=== PATIENT | female | born 1975 | race Caucasian/White ===

== ENCOUNTER 2017-08-29 09:57 | Emergency (ER) | payer OTHER ==
[~2017-08-29] VITALS: Ht 154.9 cm; Wt 97.5 kg
[~2017-08-29 09:57] MED LIST: 'carisoprodol350 MG PO; AMOXICILLIN500 MG PO; ANAPROX DS550 MG PO; ASPIRIN81 M1 PO; AUGMENTIN 875 M1 TAB PO; BACTRIM DS 8001 TA1 PO; BACTROBAN OINT22 GM PO; BUSPAR PO; CEPHALEXIN500 M1 PO; CIPROFLOXACIN500 MG PO; CLARITIN10 MG PO; CLEOCIN HCL150 MG PO; FENOFIBRATE134 MG PO; FUROSEMIDE; GLUCOPHAGE500 M1 PO; GLUCOTROL; GLUCOTROL5 MG PO; HYDROCODONE BIT1 T11 PO; HYDROXYZINE PAM50 MG PO; IBU800 MG PO; K-DUR20 MEQ PO; KEFLEX500 MG PO; LISINOPRIL; LISINOPRIL20 MG PO; MAGNESIUM250 M1 PO; METFORMIN; MOTRIN800 MG PO; OSCAL,OYSTER S500 MG PO; PAXIL20 M1 PO; PEN-VEE K500 MG PO; PEPCID20 MG PO; PERCOCET 325 MG1 TA6 PO; PLAVIX75 M1 PO; PROAIR HFA0.09 MG/AC INH; PYRIDIUM200 MG PO; QVAR0.08 MG/AC INH; SEROQUEL XR400 MG PO; SEROQUEL50 MG PO; SIMVASTATIN; SOMA350 MG PO; TOPROL PO; TOPROL XL100 MG PO; TRAMADOL HCL50 MG PO; TRIMOX500 MG PO; VICODIN 5/500 505 MG PO; ZOCOR20 MG PO
[2017-08-29] MEDS ORDERED: VITAMIN D50000 UNIT PO (10:20)
[2017-08-29] MEDS ORDERED: ACCUNEB 0.1.25 MG/1 INH (10:20)
[2017-08-29] MEDS ORDERED: FLOVENT HFA12 G1 INH (10:21)
[2017-08-29] MEDS ORDERED: SEPTDS PO (15:46)
[2017-08-29] MEDS ORDERED: NORCO 10-325 T1 EACH PO (15:46)
== END 2017-08-29 16:00 | disposition home or self-care (01) ==
LOC: ED 09:57
DX: N61.1 Abscess of the breast and nipple (principal); Z90.49 Acquired absence of other specified parts of digestive tract; Z98.51 Tubal ligation status; Z98.890 Other specified postprocedural states; Z79.899 Other long term (current) drug therapy; Z79.82 Long term (current) use of aspirin; Z88.6 Allergy status to analgesic agent; Z88.8 Allergy status to other drugs, medicaments and biological substances

== ENCOUNTER 2017-09-04 14:19 | Emergency (ER) | payer OTHER ==
[~2017-09-04] VITALS: Ht 154.9 cm; Wt 102.1 kg
--- NOTE | ~2017-09-04 | EKG ---
[place], [place] ELECTROCARDIOGRAM REPORT NAME: JESSICA DEL REAL UNIT #: [id number] ROOM: DOCTOR: EPIPHANY DRAFT REPORT BIRTHDATE: [birth year] [facility] [place] Test Date: 2017-09-04 Test Time: 15:22:36 Pat Name: JESSICA DEL REAL Department: Room: Gender: F Investigation Division Captain: : 1975 Requested By: YANNICK PADILLA Order Number: [id number] Reading MD: Josh Hall MD Measurements Intervals [place] Rate: 95 P: 68 NV: 157 QRS: 57 QRSD: 116 T: 57 QT: 397 QTc: 499 Interpretive Statements Sinus rhythm Nonspecific intraventricular conduction delay Abnormal inferior Q waves Electronically Signed On 09-06-2017 11:06:01 PDT by Josh Hall MD CM:EKGRPT:ELECTROCARDIOGRAM REPORT [id number] YANNICK PADILLA EPIPHANY DRAFT REPORT YANNICK PADILLA
[~2017-09-04 14:19] MED LIST changes: +ACCUNEB 0.1.25 MG/1 INH; +FLOVENT HFA12 G1 INH; +NORCO 10-325 T1 EACH PO; +SEPTDS PO; +VITAMIN D50000 UNIT PO
[2017-09-04 14:57] LABS: MEAN CELL VOLUME 92.9 fl (81.0-99.0); MEAN CORPUSCULAR HGB 29.6 pg (27.0-31.0); MEAN CORPUSCULAR HGB CONC 31.8 g/dl (33.0-37.0); MEAN PLATELET VOLUME 10.1 fl (9.6-12.3); NUCLEATED RED BLOOD CELL 0.6 10*3/uL (0.0-0.0); NUCLEATED RED BLOOD CELL 1.3 % (0.0-0.0); PLATELET COUNT AUTOMATED 579 10*3/uL (130-400); RED BLOOD COUNT 1.69 10*6/uL (4.10-5.10)
[2017-09-04 15:03] LABS: WHITE BLOOD COUNT 48.4 10*3/uL (4.8-10.8)
[2017-09-04 15:04] LABS: HEMATOCRIT 15.7 % (37.0-47.0)
[2017-09-04 15:13] LABS: BILIRUBIN NEGATIVE (NEGATIVE); BLOOD TRACE-INTACT (NEGATIVE); CLARITY CLEAR (CLEAR); COLOR YELLOW (YELLOW); GLUCOSE 3+ (NEGATIVE); KETONE 1+ (NEGATIVE); LEUKO ESTERASE NEGATIVE (NEGATIVE); NITRITE NEGATIVE (NEGATIVE); SPECIFIC GRAVITY <= 1.005 (1.005-1.030); UROBILINOGEN 0.2 E.U./dl (0.2-1.0)
[2017-09-04 15:14] LABS: ALKALINE PHOSPHATASE 52 U/L (45-117); BUN 51 mg/dl (7-24); CHLORIDE 101 mmol/L (98-107); CREATININE 1.38 mg/dL (0.55-1.02); POTASSIUM 4.6 mmol/L (3.5-5.1); SGOT/AST 7 IU/L (3-35); SGPT/ALT 18 U/L (12-78); SODIUM 130 mmol/L (136-145); TOTAL PROTEIN 6.3 gm/dL (6.4-8.2)
[2017-09-04 15:15] LABS: TROPONIN I < 0.015 ng/ml (<0.045)
[2017-09-04 15:19] LABS: PLATELET SUFFICIENCY HIGH (NORMAL); TOTAL CELLS COUNTED 100 #CELLS
[2017-09-04 15:20] LABS: BACTERIA 2+
[2017-09-04 15:20] LABS: POLYCHROMASIA SLIGHT
[2017-09-04 15:49] LABS: ACT PARTIAL THROMBO TIME 24.5 SECONDS (20.8-31.5); INTERNATIONAL NORM RATIO 0.9 (2.0-3.5)
[2017-09-04 17:04] LABS: ABG HCO3 7.7 mmol/l (22-26); ABG O2 SATURATION 81.9 % (95-97); ARTERIAL BLOOD GAS PO2 58.2 mmHg (80-90)
[2017-09-04 17:05] LABS: ABG BASE EXCESS -19.6 mmol/L (-2.0-2.0)
[2017-09-04 17:08] LABS: ARTERIAL BLOOD GAS PH 7.147 (7.35-7.45)
[2017-09-04 18:08] LABS: BUN 50 mg/dl (7-24); CHLORIDE 108 mmol/L (98-107); CREATININE 1.13 mg/dL (0.55-1.02); POTASSIUM 4.1 mmol/L (3.5-5.1); SODIUM 136 mmol/L (136-145)
[2017-09-04] MEDS ORDERED: INVOKANA300 M1 PO (18:09)
[2017-09-04 21:16] LABS: BUN 43 mg/dl (7-24); CHLORIDE 112 mmol/L (98-107); POTASSIUM 3.7 mmol/L (3.5-5.1); SODIUM 139 mmol/L (136-145)
[2017-09-04 22:38] LABS: URINE AMPHETAMINES < 1000 (1000ng/ml); URINE BARBITURATES < 200 (200ng/ml); URINE BENZODIAZEPINES < 200 (200ng/ml); URINE CANNABINOIDS (THC) > 50 (50ng/ml); URINE COCAINE < 300 (300ng/ml); URINE METHADONE < 300 (300ng/ml); URINE OPIATES < 300 (300ng/ml)
[2017-09-04 22:39] LABS: URINE PHENCYCLIDINE < 25 (25ng/ml)
== END 2017-09-04 22:02 | disposition short-term general hospital (02) ==
LOC: ED 14:19
PROVIDERS: Emergency Medicine; Nurse Practitioner Family
DX: A41.9 Sepsis, unspecified organism (principal); R65.20 Severe sepsis without septic shock; E11.10 Type 2 diabetes mellitus with ketoacidosis without coma; K92.2 Gastrointestinal hemorrhage, unspecified; Z88.6 Allergy status to analgesic agent; Z88.8 Allergy status to other drugs, medicaments and biological substances; Z79.899 Other long term (current) drug therapy; Z79.82 Long term (current) use of aspirin

== ENCOUNTER → 2017-09-18 | Outpatient (CLI) | payer OTHER ==
[~2017-09-18] MED LIST changes: +INVOKANA300 M1 PO
[2017-09-18 09:13] LABS: BASO # 0.1 10*3/uL (0.0-0.1); BASO % 0.7 % (0.0-1.0); EOS # 0.2 10*3/uL (0.0-0.4); EOS % 2.1 % (1.0-4.0); HEMATOCRIT 27.3 % (37.0-47.0); HEMOGLOBIN 8.2 g/dl (12.0-16.0); LYMPH # 1.8 10*3/uL (1.3-4.4); LYMPH % 16.7 % (27.0-41.0); MEAN CELL VOLUME 94.8 fl (81.0-99.0); MEAN CORPUSCULAR HGB 28.5 pg (27.0-31.0); MEAN PLATELET VOLUME 10.1 fl (9.6-12.3); MONO # 0.6 10*3/uL (0.1-1.0); MONO % 5.5 % (3.0-9.0); NEUT # 7.9 10*3/uL (2.3-7.9); NEUT % 74.6 % (47.0-73.0); NUCLEATED RED BLOOD CELL 0.2 % (0.0-0.0); PLATELET COUNT AUTOMATED 376 10*3/uL (130-400); RED BLOOD COUNT 2.88 10*6/uL (4.10-5.10); RED CELL DISTRI WIDTH 15.5 % (0-14.5); WHITE BLOOD COUNT 10.6 10*3/uL (4.8-10.8)
== END | disposition home or self-care (01) ==
LOC: LAB 08:29
DX: K92.2 Gastrointestinal hemorrhage, unspecified (principal)

== ENCOUNTER → 2017-12-04 | Day surgery (SDC) | payer OTHER ==
[~2017-12-04] VITALS: Ht 154.9 cm; Wt 97.5 kg
[~2017-12-04] MED LIST changes: +ADMELOG100 UNIT/1 SC; +ATORVASTATIN CA80 M1 PO; +BASAG SOL SC; +IMDUR SA30 MG PO; +PANTOPRAZOLE SO40 MG PO; +VITAMIN D350000 UNIT PO; +ZANAFLEX4 M1 PO
--- NOTE | ~2017-12-04 | O ---
[place], [place] OPERATIVE NOTE NAME: JESSICA DEL REAL UNIT #: [id number] ROOM: DOCTOR: SHAHIDA ARANA MD BIRTHDATE: [birth year] DOS: 12/04/2017 GASTROENDOSCOPIC REPORT IDENTIFICATION: This is a 42-year-old patient who was presented with epigastric pain, abdominal pain, history of multiple gastric ulcers. The patient on Protonix and sucralfate therapy. PAST MEDICAL HISTORY: Hypertension, diabetes mellitus, hyperlipidemia and obesity. FAMILY HISTORY: Father with colonic polyps. SOCIAL HISTORY: Smoker, has stopped, alcohol consumption of large volume 17 years ago when she has been experiencing pancreatitis. PAST SURGICAL HISTORY: Cholecystectomy, tubal ligation, DNA coronary artery disease status post 6 stents, on Plavix and aspirin. PROCEDURE: Today's procedure part of investigation is panendoscopy plus biopsy. PREMEDICATION: Propofol. SCOPE: Olympus forward-viewing gastroscope Q10 video. REPORT: After putting the patient in left lateral position and application of lubricant to the scope, the scope was introduced; thereafter, under direct visualization, advanced through the length of esophagus without difficulty. Gastric pouch was entered. Approximately 1.5 cm hiatal hernia was noticed. Distal esophagitis appreciated. Gastric pouch was entered along the greater curvature retained time and the greater curvature was noticed signifying diabetic gastroparesis. There was no bezoar. Duodenal bulb, second and third part within normal limits. Antral biopsy obtained. GI reflection of the scope reveals cardia to be benign. Air was suctioned out. The patient was extubated, tolerated the procedure well. IMPRESSION: Distal esophagitis, small hiatal hernia, diabetic gastroparesis, gastritis, healed peptic ulcer disease. PLAN AND DISCUSSION: Continuation with Protonix. Dietary management and resumption of aspirin and Plavix. Antireflux with elevation of the head of the bed 6 inch all time and clinical reassessment. [place], [place] OPERATIVE NOTE NAME: JESSICA DEL REAL UNIT #: [id number] ROOM: DOCTOR: SHAHIDA ARANA MD BIRTHDATE: [birth year] SHAHIDA ARANA MD CM:OPRECORD:OPERATIVE NOTE 5 9 SHAHIDA ARANA MD 12/04/17830 interface
[2017-12-04 07:08] VITALS: BP 129/88
[2017-12-04 08:10] VITALS: BP 130/81
[2017-12-04 08:25] VITALS: BP 122/93
[2017-12-04 08:40] VITALS: BP 134/84
== END | disposition home or self-care (01) ==
LOC: SDC 11-28 08:00
DX: K29.50 Unspecified chronic gastritis without bleeding (principal); K20.8 Other esophagitis; K44.9 Diaphragmatic hernia without obstruction or gangrene; I10 Essential (primary) hypertension; I25.10 Atherosclerotic heart disease of native coronary artery without angina pectoris; I25.2 Old myocardial infarction; J44.9 Chronic obstructive pulmonary disease, unspecified; E11.43 Type 2 diabetes mellitus with diabetic autonomic (poly)neuropathy; E78.5 Hyperlipidemia, unspecified; K31.84 Gastroparesis; F17.210 Nicotine dependence, cigarettes, uncomplicated; F32.9 Major depressive disorder, single episode, unspecified; F41.9 Anxiety disorder, unspecified; E66.09 Other obesity due to excess calories; Z83.71 Family history of colonic polyps; Z90.49 Acquired absence of other specified parts of digestive tract; Z98.51 Tubal ligation status; Z79.01 Long term (current) use of anticoagulants; Z79.82 Long term (current) use of aspirin; Z95.5 Presence of coronary angioplasty implant and graft; Z98.890 Other specified postprocedural states; Z79.899 Other long term (current) drug therapy; Z88.8 Allergy status to other drugs, medicaments and biological substances; Z83.3 Family history of diabetes mellitus; Z82.49 Family history of ischemic heart disease and other diseases of the circulatory system; Z68.41 Body mass index [BMI] 40.0-44.9, adult

== ENCOUNTER 2020-09-01 10:40 | Emergency (ER) | payer OTHER ==
[2020-09-01 11:06] LABS: BASO % 0.5 % (0.0-1.0); EOS % 0.4 % (1.0-4.0); HEMATOCRIT 45.9 % (37.0-47.0); LYMPH % 25.2 % (27.0-41.0); MEAN CELL VOLUME 90.9 fl (81.0-99.0); MEAN CORPUSCULAR HGB 30.5 pg (27.0-31.0); MEAN CORPUSCULAR HGB CONC 33.6 g/dl (33.0-37.0); MEAN PLATELET VOLUME 10.3 fl (9.6-12.3); MONO # 0.3 10*3/uL (0.1-1.0); MONO % 3.5 % (3.0-9.0); NEUT # 5.6 10*3/uL (2.3-7.9); NEUT % 70.1 % (47.0-73.0); PLATELET COUNT AUTOMATED 282 10*3/uL (130-400); RED BLOOD COUNT 5.05 10*6/uL (4.10-5.10); RED CELL DISTRI WIDTH 12.1 % (0-14.5); WHITE BLOOD COUNT 7.9 10*3/uL (4.8-10.8)
[2020-09-01 11:22] LABS: ALKALINE PHOSPHATASE 102 U/L (45-117); BUN 18 mg/dl (7-24); CHLORIDE 105 mmol/L (98-107); CPK 95 U/L (26-192); CREATININE 1.03 mg/dL (0.55-1.02); POTASSIUM 4.1 mmol/L (3.5-5.1); SGOT/AST 18 IU/L (3-35); SGPT/ALT 26 U/L (12-78); SODIUM 135 mmol/L (136-145); TOTAL PROTEIN 6.3 gm/dL (6.4-8.2)
[2020-09-01 11:23] LABS: ACETAMINOPHEN (TYLENOL) < 5.0 ug/ml (10-30); ETHYL ALCOHOL < 3.0 mg/dl (<3)
[2020-09-01 12:25] LABS: BILIRUBIN Negative (Negative); BLOOD Negative (Negative); CLARITY Clear (Clear); COLOR Yellow (Yellow); GLUCOSE 3+ (Negative); KETONE Negative (Negative); LEUKO ESTERASE Negative (Negative); NITRITE Positive (Negative); PH 6.5 (4.5-8.0); SPECIFIC GRAVITY >= 1.030 (1.001-1.030)
[2020-09-01 12:46] LABS: BACTERIA 4+
[2020-09-01 13:24] LABS: URINE AMPHETAMINES < 1000 (1000ng/ml); URINE BARBITURATES < 200 (200ng/ml); URINE BENZODIAZEPINES < 200 (200ng/ml); URINE CANNABINOIDS (THC) > 50 (50ng/ml); URINE COCAINE < 300 (300ng/ml); URINE METHADONE < 300 (300ng/ml); URINE OPIATES < 300 (300ng/ml)
[2020-09-01 13:30] LABS: URINE PHENCYCLIDINE < 25 (25ng/ml)
== END 2020-09-01 13:35 | disposition home or self-care (01) ==
LOC: ED 10:40
PROVIDERS: Emergency Medicine
DX: F15.90 Other stimulant use, unspecified, uncomplicated (principal); Z98.51 Tubal ligation status; Z90.49 Acquired absence of other specified parts of digestive tract; Z79.899 Other long term (current) drug therapy; Z79.82 Long term (current) use of aspirin; Z88.6 Allergy status to analgesic agent; Z88.1 Allergy status to other antibiotic agents; Z88.8 Allergy status to other drugs, medicaments and biological substances

== ENCOUNTER 2021-11-28 02:00 | Emergency (ER) | payer OTHER ==
[~2021-11-28] VITALS: Wt 68.0 kg
[~2021-11-28 02:00] MED LIST changes: +ALDACTONE25 MG PO; +FUROSEMIDE40 MG PO; +LOSARTAN POTASS25 M1 PO; +METOPROLOL SUCC25 M2 PO
[2021-11-28] MEDS ORDERED: TRAMADOL HCL50 MG PO (02:49)
== END 2021-11-28 02:57 | disposition home or self-care (01) ==
LOC: ED 02:00
DX: G62.9 Polyneuropathy, unspecified (principal); F17.200 Nicotine dependence, unspecified, uncomplicated; Z98.51 Tubal ligation status; Z90.49 Acquired absence of other specified parts of digestive tract; Z79.899 Other long term (current) drug therapy; Z79.82 Long term (current) use of aspirin; Z88.6 Allergy status to analgesic agent; Z88.1 Allergy status to other antibiotic agents

== ENCOUNTER → 2022-05-21 | Outpatient (CLI) | payer OTHER | END | disposition home or self-care (01) | LOC: CARD 09:21 | PROVIDERS: ATTEND Internal Medicine Cardiovascular Disease | DX: I08.1 Rheumatic disorders of both mitral and tricuspid valves (principal); I25.5 Ischemic cardiomyopathy ==